=== PATIENT | female | born 1975 | race Caucasian/White ===

== ENCOUNTER 2017-06-02 08:22 | Outpatient (CLI) | payer OTHER | END 2017-06-02 08:23 | disposition home or self-care (01) | LOC: BICMAMMO 08:22 | PROVIDERS: ATTEND Obstetrics & Gynecology | DX: N64.4 Mastodynia (principal); N63.20 Unspecified lump in the left breast, unspecified quadrant; Z80.3 Family history of malignant neoplasm of breast | CPT/HCPCS: 77066; G0279 ==